=== PATIENT | female | born 1965 | race Caucasian/White ===

== ENCOUNTER 2018-07-13 10:00 | Emergency (ER) | payer BC ==
[2018-07-13 10:07] VITALS: BP 103/64
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
[2018-07-13] MEDS ORDERED: Albuterol/Ipratropium NEB.SOL* Albuterol 2.5 MG/Ipratropium 0.5 MG 3 ML INH ONE (11:16)
== END 2018-07-13 11:57 | disposition home or self-care (01) ==
LOC: UCEAST 10:00
DX: J45.901 Unspecified asthma with (acute) exacerbation (principal); R05 Cough; Z91.040 Latex allergy status; Z91.013 Allergy to seafood
CPT/HCPCS: 71046; 87651; 99212; A9270-GY; G0463

== ENCOUNTER 2018-11-26 11:57 | Observation (INO) | payer BC ==
--- NOTE | 2018-11-26 12:17 | ED ---
Palpitations / Dysrhythmia - HPI Summary HPI Summary: Pt is a 53 y/o F presenting to the ED with a chief complaint of irregular heartbeat. She went to her doctors office this morning for respiratory issues onset about four days ago on 11/22/18 after she came back from [facility]. Her doctor took an EKG and wanted her further evaluated in the ED due to PVCs present. She reports cough, chest pain with cough, fever which was 101.1 at its highest, as well as a hx of asthma, bronchitis, and sleep apnea. She denies edema or pain in her legs. - History of Current Complaint Chief Complaint: EDDysrhythmPalp Time Seen by Provider: 11/26/18 12:06 Hx Obtained From: Patient Onset/Duration: Sudden Onset, Lasting Minutes Timing: Constant Severity Initially: Mild Severity Currently: None Aggravating: Nothing Alleviating: Nothing Associated Signs & Symptoms: Chest Pain - related to current URI - Allergy/Home Medications Allergies/Adverse Reactions: Allergies Allergy/AdvReac Type Severity Reaction Status Date / Time latex Allergy anaph Verified 11/26/18 12:04 shellfish derived Allergy Rash Verified 11/26/18 12:04 Home Medications: Home Medications Cholecalciferol (Vitamin D3) [Vitamin D3] 50,000 unit PO WEEKLY 11/26/18 [ History Confirmed 11/26/18] Cyanocobalamin/Cobamamide [Vitamin B-12 5,000 Mcg Tab Sl] 1 each SL DAILY [History Confirmed 11/26/18] Montelukast Sodium TAB* [Singulair 10 MG TAB*] 10 mg PO DAILY 11/26/18 [History Confirmed 11/26/18] PMH/Surg Hx/FS Hx/Imm Hx Previously Healthy: Yes Endocrine/Hematology History: Denies: Hx Diabetes Cardiovascular History: Reports: Other Cardiovascular Problems/Disorders Denies: Hx Hypertension, Hx Pacemaker/ICD Respiratory History: Reports: Hx Asthma, Hx Sleep Apnea Musculoskeletal History: Reports: Hx Scoliosis Sensory History: Denies: Hx Hearing Aid Neurological History: Denies: Hx Headaches, Other Neuro Impairments/Disorders Psychiatric History: Denies: Hx Panic Disorder - Cancer History Hx Chemotherapy: No Hx Radiation Therapy: No - Surgical History Surgery Procedure, Year, and Place: DEVIATED SEPTUM Infectious Disease History: No Infectious Disease History: Reports: Traveled Outside the [place] in Last 30 Days - [facility] - Family History Known Family History: Positive: Cardiac Disease - Social History Alcohol Use: None Hx Substance Use: No Substance Use Type: Reports: None Hx Tobacco Use: No Smoking Status (MU): Never Smoked Tobacco Review of Systems Positive: Fever Positive: Chest Pain Positive: Cough Negative: Myalgia, Edema All Other Systems Reviewed And Are Negative: Yes Physical Exam - Summary Physical Exam Summary: Appearance: Well-appearing, Well-nourished, lying in bed comfortably Skin: Warm, dry, no obvious rash Eyes: sclera anicteric, no conjunctival pallor ENT: mucous membranes moist, pharynx appears normal Neck: Supple, nontender Respiratory: Clear to auscultation, no signs of respiratory distress Cardiovascular: Normal S1, S2. No murmurs. Normal distal pulses in tibial and radial bilaterally. Abdomen: Soft, nontender, normal active bowel sounds present Musculoskeletal: Normal, Strength/ROM Intact Neurological: A&Ox3, awake and alert, mentation is normal, speech is fluent and appropriate Psychiatric: affect is normal, does not appear anxious or depressed Triage Information Reviewed: Yes Vital Signs On Initial Exam: Initial Vitals Temp Pulse Resp BP Pulse Ox 100.7 F 57 20 135/80 98 11/26/18 11:58 11/26/18 11:58 11/26/18 11:58 11/26/18 11:58 11/26/18 11:58 Vital Signs Reviewed: Yes Diagnostics - Vital Signs Vital Signs Temp Pulse Resp BP Pulse Ox 11/26/18 11:58 100.7 F 57 20 135/80 98 - Laboratory Result Diagrams: 11/27/18 06:35 11/27/18 06:35 Lab Statement: Any lab studies that have been ordered have been reviewed, and results considered in the medical decision making process. - Radiology CXR Radiology Interpretation Completed By: Radiologist Summary of Radiographic Findings: Hyperinflation, consistent with COPD. No active cardiopulmonary disease. ED physician has reviewed this report. - EKG 1221 Cardiac Rate: Tachycardia - 124bpm EKG Rhythm: Sinus Tachycardia ST Segment: Normal Ectopy: PVCs EKG Comparison: Other - compared with 06/30/13 Course/Dx - Course Course Of Treatment: Pt is a 53 y/o F presenting to the ED with a chief complaint of irregular heartbeat. She went to her doctors office this morning for respiratory issues onset about four days ago on 4/6/19 after she came back from [facility]. Her doctor took an EKG and wanted her further evaluated in the ED due to PVCs present. She reports cough, chest pain with cough, fever which was 101.1 at its highest, as well as a hx of asthma, bronchitis, and sleep apnea. She denies edema or pain in her legs. An EKG at 1221 shows SR at 124bpm with frequent PVCs compared with 06/30/13. CXR shows hyperinflation, consistent with COPD, but no active cardiopulmonary disease. I spoke with Dr. Edwards at 1330 about the pt and her EKG who recommended consulting Dr. Luciano. The pt will be accepted to [facility] under Dr. Ramirez with dx including fever, URI, and ventricular bigeminy. - Diagnoses Provider Diagnoses: Fever, URI (upper respiratory infection), Ventricular bigeminy Discharge - Sign-Out/Discharge Documenting (check all that apply): Patient Departure - Discharge Plan Condition: Stable Disposition: ADMITTED TO [facility] - Billing Disposition and Condition Condition: STABLE Disposition: Admitted to [facility] - Attestation Statements Document Initiated by Arnoldoibe: Yes Documenting Scribe: Brittnee Lockhart Provider For Whom Valentin is Documenting (Include Credential): Miky Ybarra MD. Scribe Attestation: IBrittnee, [email or web address] for Miky Ybarra MD. on 12/01/18 at 1358. Scribe Documentation Reviewed: Yes Provider Attestation: The documentation as recorded by the arnoldoibe, Brittnee Lockhart accurately reflects the service I personally performed and the decisions made by me, Miky Ybarra MD. Status of Scribe Document: Viewed Consult Consult: 0601 - Spoke with Dr. Edwards who recommended speaking with Dr. Luciano. 1403 - The pt will be accepted to [facility] under Dr. Niño.
[2018-11-26 13:16] LABS: ABS Basophils 0 10^3/ul (0-0.2); ABS Eosinophils 0 10^3/ul (0-0.6); ABS Lymphocytes 0.6 10^3/ul (1.0-4.8); ABS Monocytes 0.6 10^3/ul (0-0.8); ABS Nucleated RBC 0 10^3/ul; Activated Partial Thrombo Time 27.3 seconds (26.0-36.3); Hematocrit 41 % (33-41); Hemoglobin 14.1 g/dL (12.0-16.0); INR 1.04 (0.77-1.02); Lymphocyte % 14.5 %; Mean Corpuscular HGB Conc 35 g/dL (31-36); Mean Corpuscular Hemoglobin 33 pg (27-31); Mean Corpuscular Volume 94 fL (80-97); Mean Platelet Volume 6.3 fL (7.4-10.4); Nucleated Red Blood Cells % 0.1; Platelet Count 192 10^3/uL (150-450); Red Blood Count 4.29 10^6 /uL (3.70-4.87); Red Cell Distribution Width 12 % (10.5-15); White Blood Count 4.3 10^3/uL (3.5-10.8)
[2018-11-26 13:23] LABS: Urine Appearance Clear; Urine Bacteria Absent (Absent); Urine Bilirubin Negative (Negative); Urine Blood 1+ (Negative); Urine Color Yellow; Urine Glucose Negative (Negative); Urine Ketones Negative (Negative); Urine Nitrite Negative (Negative); Urine Protein Negative (Negative); Urine Red Blood Cell Trace(0-2/hpf) (Absent); Urine Specific Gravity 1.019 (1.010-1.030); Urine Urobilinogen Negative (Negative); Urine White Blood Cell Trace(0-5/hpf) (Absent)
[2018-11-26 13:26] LABS: Albumin 4.3 g/dL (3.2-5.2); Albumin/Globulin Ratio 1.5 (1-3); BUN/Creatinine Ratio 12.3 (8-20); Calcium 9.4 mg/dL (8.6-10.3); EGFR African American 89.2 (>60); EGFR Non-African American 73.7 (>60); Globulin 2.8 g/dL (2-4); Potassium 3.7 mmol/L (3.5-5.0); Total Bilirubin 0.5 mg/dL (0.2-1.0); Total Protein 7.1 g/dL (6.4-8.9)
[2018-11-26 13:28] LABS: Troponin I 0.01 ng/mL (<0.04)
[2018-11-26 13:49] LABS: Influenza A Molecular NEGATIVE (Negative); Influenza B Molecular NEGATIVE (Negative)
[2018-11-26] MEDS ORDERED: Potassium Chlor TAB* 20 MEQ TAB.ER PO ONE (13:51)
[2018-11-26 14:15] LABS: Magnesium 2.1 mg/dL (1.9-2.7)
[2018-11-26] MEDS ORDERED: NS 0.9% IV ONE (15:12)
[2018-11-26] MEDS ORDERED: Acetaminophen TAB* 325 MG PO PRN (15:27)
[2018-11-26] MEDS ORDERED: Iohexol 350* (CONTRAST) 500 ML MDV IV ONE (15:30)
[2018-11-26] MEDS ORDERED: Enoxaparin(*) 40 MG/0.4 ML SYR SUBCUT SCH (15:30)
[2018-11-26] MEDS ORDERED: DOXYcycline IV* 100 MG in NS 0.9% 250 ML* 250 ML IVPB SCH (16:00)
[2018-11-26] MEDS ORDERED: cefTRIAXone(*) 1 GM in NS 0.9% 50 ML* 50 ML IVPB SCH (16:00)
--- NOTE | 2018-11-26 16:26 | HP ---
CC: Dr. Almonte; Dr. Luciano * HISTORY AND PHYSICAL: ADDENDUM: PRIMARY CARE PROVIDER: Dr. Almonte. PRINCIPAL MILITARY ANALYST: Dr. Luciano. The case was reviewed and discussed with AKIRA Israel. HISTORY OF PRESENT ILLNESS: Ms. Marrufo is a 53-year-old lady with a past medical history of asthma, sleep apnea, and V-tach. She follows with Dr. Luciano for paroxysmal ventricular tachycardia. As per his records, in December 2010, the patient was found to have V-tach during a sleep study and cardiac cath done the same year had shown no obstructive CAD. On her last visit in May, he reviewed her Holter and it had shown marked sinus bradycardia that he thought was related to atenolol and at that time, he recommended discontinuation of the medication. As per his note, she had been fully evaluated with EP services at the [facility]. Initially, there was some concern of AVRT, but she had an MRI done in May 2015 that showed no major or minor criteria for AVRT. At that time, he recommended discontinuation of atenolol, to try and maintain herself well hydrated and keep potassium greater than 4 and magnesium greater than 2. The patient has recently returned from a trip to [facility] and she developed fever , cough, and shortness of breath. She went to see her PCP today, was found to have an irregular heartbeat and in the office, there was concern for atrial fibrillation, but review of her EKG in the emergency room shows bigeminy. She also has complaints of right-sided pleuritic chest pain. PLAN: The plan is for the patient to be admitted as observation to telemetry. We will replete her potassium to maintain greater than 4 and monitor her rhythm. At this point, I do not see any indication to start a beta-rio. I suspect she also has a bronchitis and she will be started on bronchodilators and ceftriaxone and doxycycline. With her recent trip and her pleuritic chest pain, I am also concerned about the possibility of pulmonary embolism. The patient has a history of possible shellfish allergy, so we will contact Radiology to see what kind of preparation will be required for a CTA of the chest. If she needs a prolonged preparation, we will start full-dose Lovenox. [id number]/[facility] #: [id number] [facility]
[2018-11-26] MEDS: Levalbuterol HFA INHALER* 1 PUFF MDI INH SCH ×2 (17:04→21:07)
--- NOTE | 2018-11-26 18:20 | HP ---
ATTENDING ADDENDUM NOW INCLUDED ON THIS REPORT CC: Dr. Almonte; Dr. Luciano * HISTORY AND PHYSICAL: DATE OF ADMISSION: 11/26/18 PRIMARY CARE PROVIDER: Vidhya Almonte M.D. DIGESTER CAPPER: Dr. Luciano. ATTENDING PHYSICIAN: Patricia Chau MD * (dictated by AKIRA Miles ) CHIEF COMPLAINT: Fever, cough, arrhythmia. HISTORY OF PRESENT ILLNESS: Ms. Marrufo is a 53-year-old female with a past medical history of asthma, obstructive sleep apnea and remote ventricular tachycardia, who presented to the ER today after seeing her PCP for cough and fever and being referred due to arrhythmia. Upon arrival to the ER, the patient is tachycardic and EKG showed bigeminy. She is noted to have a remote history of ventricular tachycardia. This was discovered during a sleep study in 2010 when she was noted to have ventricular tachycardia in her sleep on both consecutive nights of her sleep study. She was referred to Dr. Luciano, who prescribed her atenolol 12.5. This medication was discontinued in May [address] Luciano due to bradycardia. In the ER, she is tachycardic. It is noted that she returned to [place] from [facility] on Saturday. She notes that her flight was approximately 8-1/2 hours long followed by a 4-hour car ride. The patient's main concern today is a productive cough and fever x4 days. She states that she was helping to clean her parents home and was exposed to dust and musty conditions. Shortly after that on Saturday, she developed a productive cough followed by fevers. She has some subjective wheezing and shortness of breath. She does have chest pain in the right upper rib area with deep breathing. She also notes fevers, chills, and sweats. She has been using pumr-aqz-ksvzajt Mucinex, fluticasone, and Robitussin DM, none of which have alleviated her symptoms. She also notes fever which persists with the use of Tylenol. The patient denies headaches, blurred vision or palpitations. She denies abdominal pain and changes in bowel or bladder habits, although she does note diarrhea x1 last night. She denies pain or swelling in the lower extremities. While in the emergency room, the patient received a full workup, which included a chest x-ray and EKG. She received lab work that was overall unimpressive. She received a dose of potassium 40 mEq p.o. Hospitalist team was asked to evaluate the patient for admission. PAST MEDICAL HISTORY: 1. Asthma, mild, intermittent, typically occurs with upper respiratory illness/ pulmonary illness. 2. Obstructive sleep apnea. 3. Scoliosis. 4. History of migraines associated with menses. PAST SURGICAL HISTORY: Deviated septum, D and C x1 to 2. MEDICATIONS: 1. Montelukast sodium 10 mg p.o. daily. 2. Vitamin B12 5000 mcg 1 tab sublingual daily. 3. Cholecalciferol 50,000 units p.o. weekly. DRUG ALLERGIES: LATEX leads to anaphylaxis, SHELLFISH leads to rash. The patient states that she has never eaten shellfish, but a scratch test revealed that she was allergic. FAMILY HISTORY: Positive for heart disease, colon cancer, CVA, and diabetes. SOCIAL HISTORY: The patient does not and has never used tobacco. She does not use alcohol. 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 She does not use illicit drugs. 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 She lives with her . In the event that she is unable to make her own medical decisions, she has appointed her , Raoul Marrufo, or her daughter, Mireya Marrufo, , are to be her surrogate decision makers. REVIEW OF SYSTEMS: A 10-point review of systems was performed and all pertinent positives and negatives are in the HPI. All other systems are negative. PHYSICAL EXAMINATION GENERAL: Ms. Marrufo is a well-developed, well-nourished middle-aged white woman, who is sitting up in bed. She is slightly diaphoretic. She appears to be in no acute distress. She is noted to have occasional coughing spells. VITAL SIGNS: Temperature 101.2 temporal, heart rate 115, respiratory rate 16, oxygen saturation 93% on room air, blood pressure 113/63. HEENT: Visual armenta are grossly intact. The pupils are equally round and reactive to light. Extraocular movements are intact. Sclerae is without icterus. Hearing is grossly intact. Oral mucous membranes are moist. There are no lesions. The pharynx is clear. NECK: Trachea midline. There is no lymphadenopathy. RESPIRATORY: Symmetrical chest expansion. There is no use of the accessory muscles. There are no wheezes or rubs. Rhonchi noted in the left lower lung armenta. CARDIOVASCULAR: Tachycardic rate with regular rhythm. S1, S2 present. There are no murmurs, rubs, or gallops. There is no JVD. ABDOMEN: Flat. Bowel sounds are normoactive throughout. The abdomen is soft. It is not tender to palpation. There is no hepatosplenomegaly. MUSCULOSKELETAL: Full range of motion. No pain or deformities. EXTREMITIES: Skin is warm and smooth bilaterally. There is no clubbing or cyanosis. There is trace edema to bilateral lower extremities. Radial and pedal pulses are palpable. NEURO: The patient is awake. She is alert and oriented x3. Cranial nerves are grossly intact. She is able to move all her extremities. DIAGNOSTIC STUDIES/LABORATORY DATA: Chest x-ray on 11/26/18, impression: Hyperinflation consistent with COPD, no active cardiopulmonary disease. Electrocardiogram on 11/26/18, P waves present with occasional preventricular contractions, bigeminy. WBC 4.3, RBC 4.29, HGB 14.1, HCT 41, platelets 192. Sodium 138, potassium 3.7, chloride 105, carbon dioxide 28, anion gap 5, BUN 10, creatinine 0.81. Lactic acid 1.0. Magnesium 2.1. Troponin 0.01. Urinalysis normal except 1+ blood, trace red blood cells also noted. Negative influenza A and B. ASSESSMENT AND PLAN: Ms. Marrufo is a 53-year-old female with a past medical history of asthma and remote ventricular tachycardia, who presents to the ER today with complaints of tachycardia, cough, and fever. The patient will be admitted to observation for: 1. Sepsis. The patient is febrile with tachycardia. Likely source of infection is pulmonary in nature. She will be given 1 dose of ceftriaxone and 1 dose of doxycycline. The patient is not given azithromycin due to concern for QT prolongation in the setting of current arrhythmia. She will be given 2 L bolus of fluids. Lactic acid is within normal limits now and will be rechecked per protocol. 2. Upper respiratory infection. Chest x-ray does not reveal any consolidation , but the patient presents with productive cough and fever. She will receive a dose of ceftriaxone and doxycycline today. She will be placed on Xopenex inhaler as there is concern that other inhalers may worsen her arrhythmia. 3. Arrhythmia. The patient has a history of ventricular tachycardia. Bigeminy is seen on EKG. She is also tachycardic. There is concern for possible PE due to extended immobilization during flight followed by a car ride. CTA of the chest will be ordered to rule out PE. This could also be due to acute illness. The patient will be placed on telemetry. Her electrolytes will be monitored. Keep potassium greater than 4 and magnesium greater than 2. 4. Asthma. Xopenex ordered as the patient typically has an asthma exacerbation with pulmonary illness. There is no wheezing on exam. We will continue to monitor. 5. Obstructive sleep apnea. Patient uses Bi-PAP machine at home, but did not bring it with her. Will order Bi-Pap with home setting, 6. FEN. The patient is receiving 2 L of fluid per sepsis protocol. She will be placed on heart-healthy diet, no caffeine. 7. Code status. Full code. 8. DVT prophylaxis. Based on the DVT Risk Assessment, the patient scores a 2 and is moderate risk. She will be placed on Lovenox 40 subcu. TIME SPENT: Approximately 60 minutes was spent on this admission, greater than half of that time was spent with the patient obtaining history, performing physical, and reviewing the plan of care. The case has been reviewed with my attending, Dr. Chau, who is in agreement with the plan of care. AKIRA MILES ATTENDING ADDENDUM: PRIMARY CARE PROVIDER: Dr. Almonte. DIGESTER CAPPER: Dr. Luciano. The case was reviewed and discussed with AKIRA Israel. HISTORY OF PRESENT ILLNESS: Ms. Marrufo is a 53-year-old lady with a past medical history of asthma, sleep apnea, and V-tach. She follows with Dr. Luciano for paroxysmal ventricular tachycardia. As per his records, in December 2010, the patient was found to have V-tach during a sleep study and cardiac cath done the same year had shown no obstructive CAD. On her last visit in May, he reviewed her Holter and it had shown marked sinus bradycardia that he thought was related to atenolol and at that time, he recommended discontinuation of the medication. As per his note, she had been fully evaluated with EP services at the [facility]. Initially, there was some concern of AVRT, but she had an MRI done in May 2015 that showed no major or minor criteria for AVRT. At that time, he recommended discontinuation of atenolol, to try and maintain herself well hydrated and keep potassium greater than 4 and magnesium greater than 2. The patient has recently returned from a trip to [facility] and she developed fever , cough, and shortness of breath. She went to see her PCP today, was found to have an irregular heartbeat and in the office, there was concern for atrial fibrillation, but review of her EKG in the emergency room shows bigeminy. She also has complaints of right-sided pleuritic chest pain. PLAN: The plan is for the patient to be admitted as observation to telemetry. We will replete her potassium to maintain greater than 4 and monitor her rhythm. At this point, I do not see any indication to start a beta-rio. I suspect she also has a bronchitis and she will be started on bronchodilators and ceftriaxone and doxycycline. With her recent trip and her pleuritic chest pain, I am also concerned about the possibility of pulmonary embolism. The patient has a history of possible shellfish allergy, so we will contact Radiology to see what kind of preparation will be required for a CTA of the chest. If she needs a prolonged preparation, we will start full-dose Lovenox. PATRICIA Chau MD [id number]/CPS #: [id number]/CPS #: [id number] ALBERTA
[2018-11-26] MEDS ORDERED: guaiFENesin LIQ* 100 MG/5 ML UDC PO PRN (19:21)
[2018-11-26] MEDS: DOXYcycline CAP(*) 100 MG PO SCH (19:42)
[2018-11-26] MEDS: Fluticasone NASAL SPRAY 50MCG* 16 gm SPRAY BTL BOTH NARES SCH (21:43)
[2018-11-26] MEDS ORDERED: Ibuprofen TAB* 600 MG PO ONE (23:11)
[2018-11-26] MEDS: Acetaminophen TAB* 325 MG PO PRN (23:27)
[2018-11-27] MEDS: Levalbuterol HFA INHALER* 1 PUFF MDI INH SCH ×3 (02:01→07:56)
[2018-11-27 06:54] LABS: ABS Basophils 0 10^3/ul (0-0.2); ABS Eosinophils 0.1 10^3/ul (0-0.6); ABS Lymphocytes 1.1 10^3/ul (1.0-4.8); ABS Monocytes 0.5 10^3/ul (0-0.8); ABS Neutrophils 1.4 10^3/ul (1.5-7.7); ABS Nucleated RBC 0 10^3/ul; Eosinophil % 2.6 %; Hematocrit 37 % (33-41); Hemoglobin 12.8 g/dL (12.0-16.0); Mean Corpuscular HGB Conc 35 g/dL (31-36); Mean Corpuscular Hemoglobin 33 pg (27-31); Mean Corpuscular Volume 94 fL (80-97); Mean Platelet Volume 6.6 fL (7.4-10.4); Nucleated Red Blood Cells % 0.1; Platelet Count 161 10^3/uL (150-450); Red Blood Count 3.93 10^6 /uL (3.70-4.87); Red Cell Distribution Width 12 % (10.5-15); White Blood Count 3.1 10^3/uL (3.5-10.8)
[2018-11-27 07:10] LABS: BUN/Creatinine Ratio 9.7 (8-20); Calcium 9.1 mg/dL (8.6-10.3); EGFR African American 102.1 (>60); EGFR Non-African American 84.4 (>60); Magnesium 1.9 mg/dL (1.9-2.7); Potassium 4.1 mmol/L (3.5-5.0)
[2018-11-27] MEDS: Acetaminophen TAB* 325 MG PO PRN (08:45)
[2018-11-27] MEDS: DOXYcycline CAP(*) 100 MG PO SCH (08:59)
[2018-11-27] MEDS: Fluticasone NASAL SPRAY 50MCG* 16 gm SPRAY BTL BOTH NARES SCH (08:59)
[2018-11-27] MEDS ORDERED: COBAMAMIDE SL SCH (09:00)
[2018-11-27] MEDS ORDERED: Montelukast Sodium TAB* 10 MG PO SCH (09:00)
[2018-11-27] MEDS ORDERED: CYANOCOBALAMIN SL SCH (09:00)
[2018-11-27 12:26] VITALS: BP 105/66
--- NOTE | 2018-11-27 13:09 | DS ---
CC: Dr. Vidhya Almonte* DISCHARGE SUMMARY: DATE OF ADMISSION: 11/26/18 DATE OF DISCHARGE: 11/27/18 PRIMARY CARE PROVIDER: Dr. Vidhya Almonte. FINAL DISCHARGE DIAGNOSIS: Upper respiratory infection secondary to sinusitis. ADDITIONAL DISCHARGE DIAGNOSES: 1. History of intermittent mild asthma. 2. Obstructive sleep apnea. 3. History of migraine. HOSPITAL COURSE: The patient presented to [facility] 11/26/18 for fever, cough, shortness of breath, congestion with known history of asthma, prior history of URI. She was admitted. She was placed on the medical service under observation and she was started on intravenous antibiotics for a presumed sepsis. The patient was seen and evaluated by me the following day. She was completely feeling significantly better. Her temperature subsided to low-grade temperature and is down 97.5. She did have a T-max of 102.6. Upon reviewing her workup, she did have a CBC only significant for low white count of 3.1, otherwise normal differential. Her chemistry was fairly unremarkable with normal lactic acid. Urine negative and influenza A and B negative. Also, she had a CT scan of the chest for the purpose to rule out PE given her recent travel, which was also negative for infiltrate. On clinical evaluation, she does have significant tenderness in her maxillary sinuses bilaterally, worse on the right. Given the patient's presentation, I do not believe the patient did have sepsis. She did have URI with a fever and reactive tachycardia for which I presume is normal physiological response for a fever. I will discharge the patient on oral antibiotic. I was going to discharge her on Levaquin, but she preferred to avoid it given her joint pain. I was hesitant to give her Zithromax given a subjective history of cardiac arrhythmia; however, she clearly stated that she has taken it, last one was in August, worked well, did not affect her heart and that is the antibiotic of choice for the patient from previous similar symptoms that responded only to Zithromax. I would support her decision. I gave her a Z-Antwan prescription along with Medrol Antwan to take as directed and I cleared her for discharge. PHYSICAL EXAM ON DISCHARGE: Her vital signs: Temperature 97.5; pulse 64; respiratory rate 20; satting 98%; blood pressures between 116/55 and 92/50, ____ __ asymptomatic. Head and Neck: Normocephalic, atraumatic. She does have maxillary sinus tenderness both bilaterally, worse on the right. Lungs: Good air flow. No crackles, rhonchi, or wheeze. Cardiovascular: S1, S2. Regular rate and rhythm. Abdomen: Positive bowel sounds. Soft, nontender, nondistended. Extremities: No pedal edema. DIAGNOSTIC STUDIES/LAB DATA: She had a CT angiogram of the chest in the emergency room, which was negative for PE or infiltrate. Chest x-ray as well 11/26/18 was negative, mild hyperinflation consistent with her history of asthma. EKG, which was done, reveals sinus rhythm with bigeminy alternating with trigeminy. Diagnostic workup: CBC: White count 3.1. Chemistry unremarkable, normal magnesium 1.9, potassium 4.1. Influenza A and B negative. DISCHARGE MEDICATIONS: 1. Zithromax (Z-Antwan) 500 day 1, then as directed for day 2, 3, 4, 5. 2. Medrol Antwan as directed. DISCHARGE INSTRUCTIONS: 1. Take all medications as prescribed. 2. Follow up with her PCP in 1 to 2 weeks. 2. 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 Luciano. I elected not to put her on atenolol as it was recently discontinued by her chuck wagon driver due to her bradycardia and her pulse at this time is 64 and as low as 57. DISPOSITION: Home. CONDITION: Stable. [id number]/CPS #: [id number] MTDD
== END 2018-11-27 14:00 | disposition home or self-care (01) ==
LOC: ED 11:57 → MEDTELE 14:11
PROVIDERS: ADMIT Internal Medicine; ATTEND Internal Medicine
DX: J06.9 Acute upper respiratory infection, unspecified (principal); J01.90 Acute sinusitis, unspecified; J45.909 Unspecified asthma, uncomplicated; G47.33 Obstructive sleep apnea (adult) (pediatric); I49.3 Ventricular premature depolarization; R07.9 Chest pain, unspecified; Z79.899 Other long term (current) drug therapy
CPT/HCPCS: 36415; 71046; 71275; 80048; 80053; 81003; 81015; 83605; 83735; 84484; 85025; 85610; 85730; 87040; 87086; 93005; 94640; 94660; 96365; 96366; 96372; 99284; A9270-GY; G0378; J0696; J1650; Q9967

== ENCOUNTER 2019-12-09 15:34 | Emergency (ER) | payer BC ==
[2019-12-09 17:00] LABS: ABS Eosinophils 0.1 10^3/ul (0-0.6); ABS Lymphocytes 1.4 10^3/ul (1.0-4.8); ABS Monocytes 0.5 10^3/ul (0-0.8); ABS Neutrophils 1.6 10^3/ul (1.5-7.7); Eosinophil % 2.3 %; Hematocrit 40 % (35-47); Hemoglobin 14.1 g/dL (12.0-16.0); Lymphocyte % 38.4 %; Mean Corpuscular HGB Conc 36 g/dL (31-36); Mean Corpuscular Hemoglobin 34 pg (27-31); Mean Corpuscular Volume 95 fL (80-97); Mean Platelet Volume 6.5 fL (7.4-10.4); Platelet Count 253 10^3/uL (150-450); Red Blood Count 4.19 10^6 /uL (3.70-4.87); Red Cell Distribution Width 13 % (10-15); White Blood Count 3.5 10^3/uL (3.5-10.8)
--- NOTE | 2019-12-09 17:18 | ED ---
HPI Chest Pain - HPI Summary HPI Summary: This patient is a 54 y/o female presenting to [facility] c/o intermittent chest pain. Patient reports 1 week ago she developed mid sternal chest pain while shopping that lasted approximately 20 minutes. She states her chest pain resolved spontaneously. Today patient notes she experienced mid sternal chest pain again and it also lasted for 20 minutes and it also resolved on its own. Patient reports she has hx of asymptomatic Vtach only when she sleeps. Patient spoke with cardiology and was recommended to come to the ED. She currently denies any chest pain, palpitations, shortness of breath, nausea, vomiting, diarrhea, constipation, fever, chills. - History of Current Complaint Chief Complaint: EDChestPainROMI Time Seen by Provider: 12/09/19 16:10 Hx Obtained From: Patient Onset/Duration: Started Days Ago, Resolved Timing: Lasting Minutes - 20 minutes at a time Current Severity: None Pain Intensity: 0 Pain Scale Used: 0-10 Numeric Chest Pain Location: Mid Sternal Chest Pain Radiates: No Aggravating Factor(s): Nothing Alleviating Factor(s): Nothing Associated Signs and Symptoms: Positive: Chest Pain. Negative: Shortness of Breath, Fever, Chills, Nausea, Palpitations, Vomiting - Allergy/Home Medications Allergies/Adverse Reactions: Allergies Allergy/AdvReac Type Severity Reaction Status Date / Time latex Allergy anaph Verified 08/04/19 10:46 shellfish derived Allergy Rash Verified 08/04/19 10:46 RAWONION/WHITE Allergy Hives Uncoded 08/04/19 10:46 POTATOES/WHITE RICE Home Medications: Home Medications Cholecalciferol (Vitamin D3) [Vitamin D3] 50,000 unit PO WEEKLY 11/26/18 [ History Confirmed 08/04/19] Cyanocobalamin/Cobamamide [Vitamin B-12 5,000 Mcg Tab Sl] 1 each SL DAILY [History Confirmed 08/04/19] Montelukast Sodium TAB* [Singulair 10 MG TAB*] 10 mg PO DAILY 11/26/18 [History Confirmed 08/04/19] Acetaminophen [Tylenol Arthritis] 650 mg PO DAILY PRN 05/21/19 [History Confirmed 08/04/19] Almotriptan Malate 6.25 mg PO DAILY PRN 05/21/19 [History Confirmed 08/04/19] Cyclobenzaprine TAB* [Flexeril 10 MG TAB*] 10 mg PO TID 05/21/19 [History Confirmed 08/04/19] Docusate Sodium [Colace Clear] 100 mg PO BEDTIME PRN 05/21/19 [History Confirmed 08/04/19] EPINEPHrine [Epipen] 0.3 mg IJ SEE INSTRUCTIONS 05/21/19 [History Confirmed ] Hydrocodone/Acetaminophen [Vicodin 5-300 mg] 1 tab PO TID 05/21/19 [History Confirmed 08/04/19] Levalbuterol HFA INHALER* [Xopenex Hfa Inhaler*] 2 puff INH QID PRN 05/21/19 [ History Confirmed 08/04/19] Omeprazole CAP (NF) [Prilosec CAP* 20 MG] 20 mg PO DAILY 05/21/19 [History Confirmed 08/04/19] Meloxicam [Mobic] 15 mg PO DAILY 08/04/19 [History Confirmed 08/04/19] PMH/Surg Hx/FS Hx/Imm Hx Endocrine/Hematology History: Denies: Hx Diabetes Cardiovascular History: Reports: Hx Hypotension, Other Cardiovascular Problems/ Disorders Denies: Hx Hypertension, Hx Pacemaker/ICD Respiratory History: Reports: Hx Asthma, Hx Sleep Apnea - Bipap, Other Respiratory Problems/Disorders - sleep apnea Denies: Hx Chronic Obstructive Pulmonary Disease (COPD) GI History: Reports: Hx Gastroesophageal Reflux Disease - prilosec Musculoskeletal History: Reports: Hx Arthritis, Hx Scoliosis Sensory History: Reports: Hx Contacts or Glasses Denies: Hx Hearing Aid Opthamlomology History: Reports: Hx Contacts or Glasses Neurological History: Reports: Hx Migraine Denies: Hx Headaches, Other Neuro Impairments/Disorders Psychiatric History: Reports: Hx Depression - in 2009 Denies: Hx Panic Disorder - Cancer History Hx Chemotherapy: No Hx Radiation Therapy: No - Surgical History Surgical History: Yes Surgery Procedure, Year, and Place: DEVIATED SEPTUM Infectious Disease History: No Infectious Disease History: Denies: Traveled Outside the [place] in Last 30 Days - Family History Known Family History: Positive: Cardiac Disease - Social History Alcohol Use: None Hx Substance Use: No Substance Use Type: Reports: None Hx Tobacco Use: No Smoking Status (MU): Never Smoked Tobacco Review of Systems Negative: Fever, Chills Positive: Chest Pain - intermittent. Negative: Palpitations Negative: Shortness Of Breath Negative: Vomiting, Diarrhea, Nausea, Other - NEGATIVE: constipation All Other Systems Reviewed And Are Negative: Yes Physical Exam - Summary Physical Exam Summary: VITAL SIGNS: Reviewed. GENERAL: Patient is a well-developed and nourished female who is lying comfortable in the stretcher. Patient is not in any acute respiratory distress. HEAD AND FACE: No signs of trauma. No ecchymosis, hematomas or skull depressions. No sinus tenderness. EYES: PERRLA, EOMI x 2, No injected conjunctiva, no nystagmus. EARS: Hearing grossly intact. Ear canals and tympanic membranes are within normal limits. MOUTH: Oropharynx within normal limits. NECK: Supple, trachea is midline, no adenopathy, no JVD, no carotid bruit, no c- spine tenderness, neck with full ROM. CHEST: Symmetric, no tenderness at palpation LUNGS: Clear to auscultation bilaterally. No wheezing or crackles. CVS: Regular rate and rhythm, S1 and S2 present, no murmurs or gallops appreciated. ABDOMEN: Soft, non-tender. No signs of distention. No rebound, no guarding, and no masses palpated. Bowel sounds are normal. EXTREMITIES: FROM in all major joints, no edema, no cyanosis or clubbing. NEURO: Alert and oriented x 3. No acute neurological deficits. Speech is normal and follows commands. SKIN: Dry and warm Triage Information Reviewed: Yes Vital Signs On Initial Exam: Initial Vitals Temp Pulse Resp BP Pulse Ox 97.8 F 54 16 116/63 98 12/09/19 15:37 12/09/19 15:37 12/09/19 15:37 12/09/19 15:37 12/09/19 15:37 Vital Signs Reviewed: Yes Procedures - Sedation Patient Received Moderate/Deep Sedation with Procedure: No Diagnostics - Vital Signs Vital Signs Temp Pulse Resp BP Pulse Ox 12/09/19 16:33 49 12 98/66 97 12/09/19 16:32 48 11 98 12/09/19 15:37 97.8 F 54 16 116/63 98 - Laboratory Lab Results: Lab Results 12/09/19 Range/Units 16:47 WBC 3.5 (3.5-10.8) 10^3/uL RBC 4.19 (3.70-4.87) 10^6 /uL Hgb 14.1 (12.0-16.0) g/dL Hct 40 (35-47) % MCV 95 (80-97) fL MCH 34 H (27-31) pg MCHC 36 (31-36) g/dL RDW 13 (10-15) % Plt Count 253 (150-450) 10^3/uL MPV 6.5 L (7.4-10.4) fL Neut % (Auto) 45.6 % Lymph % (Auto) 38.4 % [place] % (Auto) 13.2 % Eos % (Auto) 2.3 % Baso % (Auto) 0.5 % Absolute Neuts (auto) 1.6 (1.5-7.7) 10^3/ul Absolute Lymphs (auto) 1.4 (1.0-4.8) 10^3/ul Absolute Monos (auto) 0.5 (0-0.8) 10^3/ul Absolute Eos (auto) 0.1 (0-0.6) 10^3/ul Absolute Basos (auto) 0.0 (0-0.2) 10^3/ul Absolute Nucleated RBC 0.0 10^3/ul Nucleated RBC % 0.0 Result Diagrams: 12/09/19 16:47 12/09/19 16:47 Lab Statement: Any lab studies that have been ordered have been reviewed, and results considered in the medical decision making process. - Radiology Chest XR Radiology Interpretation Completed By: ED Physician Summary of Radiographic Findings: No acute process. Pending official radiology report. - EKG 1537 Cardiac Rate: Bradycardia - at 47 bpm EKG Rhythm: Sinus Bradycardia Summary of EKG Findings: EKG at 1537 shows sinus bradycardia at a rate of [address] elevations. This EKG was interpreted and reviewed by ED physician. Re-Evaluation - Re-Evaluation First Eval Re-Evaluation Time: 18:36 Comment: Reviewed results with patient. She will be discharged home with follow up from her PCP. Chest Pain Course/Dx - Course Assessment/Plan: This patient is a 54 y/o female presenting to [facility] c/o intermittent chest pain. Patient reports 1 week ago she developed mid sternal chest pain while shopping that lasted approximately 20 minutes. She states her chest pain resolved spontaneously. Today patient notes she experienced mid sternal chest pain again and it also lasted for 20 minutes and it also resolved on its own. Patient reports she has hx of asymptomatic Vtach only when she sleeps. Patient spoke with cardiology and was recommended to come to the ED. She currently denies any chest pain, palpitations, shortness of breath, nausea, vomiting, diarrhea, constipation, fever, chills. In the ED course the patient was placed in a threat monitoring analyst, IV access was obtained, IV fluids were started. Past medical records reviewed. Blood test w/o a significant abnormality. EKG shows a normal sinus rhythm without any ST elevations. Patient reports that all symptoms have resolved. Patient HEART score is: 1 therefore, low suspicion for CAD. Patient is not hypoxic or tachycardic. Wells criteria is 0. Therefore, no suspicion for PE. Patient has no abdominal bruit thus no suspicion for AAA. Patients pain does not radiate to the back and pain has resolved, thus low suspicion for aortic dissection. I discussed all the findings and test results with the patient. Patient was instructed to return to the emergency room immediately if any of the symptoms returns or worsens. Patient understands and agrees. Plan of care was discussed with the patient and patient understands and agrees. All questions were answered at patient satisfaction. There were no further complaints or concerns. PE before discharge : CVS: S1 and S2 present. No murmurs appreciated. Abdominal exam before discharge: Soft, non-tender. No signs of distention. No rebound, no guarding, and no masses palpated. Bowel sounds are normal. Patient is alert and oriented x 3. Patient is hemodynamically stable. - Chest Pain Differential Diagnosis/HQI/PQRI: Acute ID, ACS, Angina, CHF, Chest Wall, GI Disease, Lower Respiratory Infection, Pulmonary Edema - Diagnoses Provider Diagnoses: Atypical chest pain - Critical Care Time Critical Care Statement: Critical care time is provided exclusive of any time spent performing procedures. Discharge ED - Sign-Out/Discharge Documenting (check all that apply): Patient Departure - Discharge home - Discharge Plan Condition: Stable Disposition: HOME Patient Education Materials: Chest Pain (ED) Referrals: Vidhya Almonte MD [Primary Care Provider] - Additional Instructions: FOLLOW UP WITH YOUR PRIMARY CARE PROVIDER IN 2-3 DAYS. RETURN TO THE ED FOR ANY NEW OR WORSENING SYMPTOMS. - Billing Disposition and Condition Condition: STABLE Disposition: Home - Attestation Statements Document Initiated by Scribe: Yes Documenting Scribe: Gena Hagen Provider For Whom Scribe is Documenting (Include Credential): Ervin Rosa MD Scribe Attestation: I, Gena Hagen, scribed for Ervin Rosa MD on 12/11/19 at 0711. Scribe Documentation Reviewed: Yes Provider Attestation: The documentation as recorded by the Gena morris accurately reflects the service I personally performed and the decisions made by me, Ervin Rosa MD Status of Scribe Document: Viewed
[2019-12-09 17:29] LABS: Albumin 4.6 g/dL (3.2-5.2); Albumin/Globulin Ratio 1.6 (1-3); BUN/Creatinine Ratio 18.5 (8-20); Calcium 9.7 mg/dL (8.6-10.3); EGFR African American 88.8 (>60); EGFR Non-African American 73.4 (>60); Globulin 2.8 g/dL (2-4); Magnesium 2.2 mg/dL (1.9-2.7); Potassium 3.8 mmol/L (3.5-5.0); Total Bilirubin 0.4 mg/dL (0.2-1.0); Total Protein 7.4 g/dL (6.4-8.9)
[2019-12-09 17:31] LABS: CKMB ng/mL 2.5 ng/mL (0.6-6.3)
[2019-12-09 18:04] LABS: TSH (Thyroid Stimulating Horm) 0.84 mcIU/mL (0.34-5.60)
[2019-12-09 18:07] LABS: Urine Appearance Clear; Urine Bilirubin Negative (Negative); Urine Blood Negative (Negative); Urine Color Straw; Urine Glucose Negative (Negative); Urine Ketones Negative (Negative); Urine Nitrite Negative (Negative); Urine Protein Negative (Negative); Urine Specific Gravity 1.004 (1.010-1.030); Urine Urobilinogen Negative (Negative)
[2019-12-09 19:17] VITALS: BP 107/66
== END 2019-12-09 19:16 | disposition home or self-care (01) ==
LOC: ED 15:34
DX: R07.89 Other chest pain (principal); I10 Essential (primary) hypertension; K21.9 Gastro-esophageal reflux disease without esophagitis; F32.9 Major depressive disorder, single episode, unspecified; Z79.899 Other long term (current) drug therapy; Z91.040 Latex allergy status; Z86.79 Personal history of other diseases of the circulatory system
CPT/HCPCS: 36415; 71045; 80053; 81003; 82550; 82553; 83605; 83735; 83880; 84443; 84484; 85025; 93005; 99282